=== PATIENT | female | born 1945 | race Caucasian/White ===

== ENCOUNTER → 2018-08-23 13:52 | Outpatient (BNVA) | payer MEDICARE, OTHER, SELFPAY | PROVIDERS: Referring Provider Internal Medicine; Visit Provider Nurse Practitioner Gerontology | DX: N39.0 Urinary tract infection, site not specified (principal); R82.71 Bacteriuria; E11.9 Type 2 diabetes mellitus without complications; I10 Essential (primary) hypertension; Z79.4 Long term (current) use of insulin | CPT/HCPCS: 99204 ==

== ENCOUNTER 2018-08-28 00:20 | Outpatient (CLI) | payer MEDICARE, OTHER, SELFPAY ==
[2018-08-28 10:29] LABS: CREATININE 1.22 mg/dL (0.55-1.02); Estimated GFR 43.45 (mL/min/1.73m2)
[2018-08-28] MEDS: Omnipaque 350 MG/ML 100 ML BTL IJ (11:15)
--- NOTE | 2018-08-28 11:20 | DI.CT_ITS ---
SYMPTOMS/DIAGNOSIS: RECURRENT URINARY TRACT INFECTIONS, CTU, R31.9 CT EXAMINATION OF THE ABDOMEN AND PELVIS: The patient has decreased renal function and the study was carried out with an intravenous injection of 70 cc of Omnipaque 350. There are regions of atelectasis involving the lung bases. The liver is unremarkable. The gallbladder is intact. There are no stones or ductal dilatation. The pancreas and spleen are intact. There are left renal cysts and vascular calcification is noted in the left kidney. There is no definite evidence of right or left nephrolithiasis or hydronephrosis. The ureters are not opacified; however, there is no evidence of right or left nephrolithiasis and the proximal mid portions of the ureters are of normal caliber. The bladder is nondistended. There is no evidence of bowel obstruction. The patient is apparently status post appendectomy. The reproductive organs as visualized appear intact with calcifications noted in the uterus consistent with degenerated fibroids. There is no evidence of a mass or adenopathy in the abdomen or pelvis. SUMMARY: The abdominal and pelvic CT reveals left renal cysts. There is no evidence of a right or left renal mass, nephrolithiasis or hydronephrosis. Please see the above discussion.
== END 2018-08-28 00:40 ==
PROVIDERS: PCP Internal Medicine; Visit Provider Nurse Practitioner Gerontology
DX: N39.0 Urinary tract infection, site not specified (principal); R31.9 Hematuria, unspecified; N28.1 Cyst of kidney, acquired; D25.9 Leiomyoma of uterus, unspecified
CPT/HCPCS: 36415; 74178; 82565; J3490

== ENCOUNTER 2019-12-27 06:33 | Day surgery (SDC) | payer MEDICARE, OTHER, SELFPAY ==
[2019-12-27 06:30] VITALS: BP 169/75; PULSE 64; RESP 16; TEMP 36.4; O2SAT 100
[2019-12-27] MEDS: Tropicam./Phenyleph. (1/2.5%) 5 ML BTL OD ×3 (06:51→07:00)
[2019-12-27] MEDS: Trypan Blue 0.06% 0.5 ML SYR (07:47)
[2019-12-27] MEDS: Tetracaine 0.5% 4 ML BTL OD (07:49)
[2019-12-27] MEDS: Lidocaine 1% Pres-Free 5 ML VIAL (07:50)
[2019-12-27] MEDS: Moxifloxacin-PF 1 MG/ML VIAL (07:51)
[2019-12-27] MEDS: Balanced Salt Soln.-PLUS 500 ML BAG ×2 (07:53→08:00)
[2019-12-27] MEDS: Lidocaine 2% Jelly 6 ML SYR (07:55)
[2019-12-27] MEDS: Povidone-Iodine Ophth 30 ML BTL (07:56)
--- NOTE | 2019-12-27 08:30 | W.PM.DSUDISC ---
Discharge Plan Disposition Patient Disposition: HOME Condition: Good Discharge Details Attending Provider: Rex Wallace Primary Care Provider: Rasheed Johnson Home Meds and New Rx's Prescriptions: No Action acetaminophen 500 mg tablet 500 mg PO BID PRNRF: 0 amlodipine 5 mg tablet 5 mg PO DAILY RF: 0 atorvastatin 10 mg tablet 10 mg PO DAILY RF: 0 chlorthalidone 25 mg tablet 25 mg PO DAILY RF: 0 Levemir U-100 Insulin 100 unit/mL solution 40 unit SC QHS RF: 0 losartan 100 mg tablet 100 mg PO DAILY RF: 0 metoprolol tartrate 50 mg tablet 50 mg PO BID RF: 0 Novolog Flexpen U-100 Insulin 100 unit/mL insulin pen 6 unit SC TID RF: 0 Discharge Instructions Stand Alone Forms: Post-op Topical Cataract, June Diaz (DSU) Discharge Orders Discharge Orders: Discharge Order (Routine); Ordered 12/27/19 Ordered By: Rex Wallace DS: Diagnosis Discharge Diagnosis (1) Posterior subcapsular age-related cataract, right eye: Status: Resolved (2) Nuclear sclerotic cataract of right eye: Status: Resolved (3) Cortical cataract of right eye: Status: Resolved
--- NOTE | 2019-12-27 08:31 | ROE_ITS ---
Date of service: 12/27/19 Time of Service: 08:32 Operative Note Operative Note DATE OF PROCEDURE: 12/27/19 PRE-OP DIAGNOSIS: Nuclear/cortical/subcapsular cataract, right eye, dense; poor red reflex, right eye secondary to dense cataract POST-OP DIAGNOSIS: same PROCEDURE: Cataract extraction using phacoemulsification with intraocular lens implantation, right eye, using capsular staining with Vision Blue SURGEON: Rex Wallace ANESTHESIA: MAC (with local sub-tenon's anesthetic injection) PATHOLOGY: none sent COMPLICATIONS: None Patient was transported to: same day Patient's condition: stable Implants: [employer] / [employer] Tecnis [id number] Indications: Progressive visual loss due to cataract, right eye Procedure Description: CATARACT SURGERY OPERATIVE REPORT PREOPERATIVE DIAGNOSIS: 1. Dense nuclear/cortical/posteriorsubcapsular cataract, right eye 2. Poor red reflex secondary to #1 POSTOPERATIVE DIAGNOSIS: Same OPERATION: 1. Cataract extraction using phacoemulsification with posterior chamber intraocular lens implant, right eye. 2. Capsular staining with Vision Blue IOL: IOL [employer] Coach/Model: [employer] / [place] Tecnis [id number] IOL Power: + 19.50 diopters IOL Serial Number: [id number] Optic Diameter: 6.0mm Haptic/Overall Diameter: 13.0mm PHACO INFO: Saul Fastac[employer]urion Vision System with OZil and [employer] Cumulative Dispersed Energy (CDE): 26.5 seconds SURGEON: Rex Wallace MD, KATALINA ANESTHESIA: Monitored Anesthesia Care (MAC), with local sub-tenon's anesthetic infiltration COMPLICATIONS: None SPECIMENS: None INDICATIONS FOR PROCEDURE: The patient is a 74-year-old lady with history of having undergone cataract surgery in her left eye many years ago. She has now developed a dense nuclear/cortical/posterior subcapsular cataract in the right eye with distance visual acuity of less than 20/400. The option of cataract surgery was offered to the patient and she wished to proceed. PROCEDURE: The correct surgical eye was identified and marked as the right eye and the pupil was dilated in the preoperative area using mydriatics and cycloplegics. The dilated pupil size was 5.5 mm. Oral sedation was administered in the form of an Imprimis MKO Melt (midazolam 3mg/ketamine 25mg/ondansetron 2mg). The patient was brought to the operating room where cardiopulmonary monitoring was instituted and surgical time-out was performed, confirming the correct operative eye and IOL power. Topical anesthesia was administered and ophthalmic povidone-iodine 5% was instilled into the conjunctival fornices. Lidocaine gel was applied to the cornea and the helena-ocular area was prepped with Betadine 10% solution and d raped in the usual sterile fashion for intraocular surgery, including an aperture drape. A Tegaderm transparent film dressing was cut in half and used to cover the lashes and lid margins. Care was taken to sequester the lashes and lid margins under the Tegaderm dressing. A lid speculum was placed between the lids of the operative eye and the Ita-Moy operating microscope was maneuvered into position. Charles scissors were then used to make a conjunctival buttonhole approximately 6mm posterior to the limbus in the inferonasal quadrant. Blunt dissection was carried out to expose bare sclera, and a blunt-tipped sub-tenon?s anesthesia cannula was introduced and passed posteriorly along the globe where non- preserved plain lidocaine was injected into posterior sub-Tenon?s space. A sidep ort knife was used to make a paracentesis port inferotemporally. Intraocular phenylephrine/lidocaine was injected into the anterior chamber. Air was injected into the anterior chamber, followed by Vision Blue, which was painted over the anterior capsule and then irrigated out with BSS. The anterior chamber was filled with Healon Pro. A 2.4mm keratome knife was used to create a half- thickness groove at the limbus and then to construct a three-plane near-clear corneal tunnel extending 2.0mm into clear cornea superiortemporally. A flap was raised on the anterior capsule using a cystotome. Zonular support was noted to be moderately lax. Capsulorrhexis forceps were then used to continue the continuous curvilinear capsulorrhexis in a clockwise fashion from the 7 o'clock position. At approximately the 12 o'clock position the patient moved suddenly, causing the capsulorrhexis to extend peripherally. It was able to be brought centrally but the flap completely tore away. A cystotome was then used to make an additional cut in the anterior capsule and capsulorhexis was then continued to create a continuous curvilinear capsulorrhexis, with an irregular discontinuity at the 1 o'clock position. Balanced salt solution was then used to perform cortical cleaving hydrodissection and nuclear hydrodelineation until the lens could be freely rotated within the capsular bag. The lens nucleus was then disassembled and removed within the capsular bag and iris plane using phacoemulsification. The cataract was noted to be quite dense with a leathery/rubbery posterior plate. Extensive manipulation was required to correct the cataract into smaller pieces. Residual cortical material was removed using the I/A handpiece. The posterior capsule was carefully polished to remove as much residual lens epithelial cells as safely possible. The capsular bag was then inflated and the anterior chamber deepened with viscoelastic. The lens implant described above was inserted into the capsular bag using the [place] Injector. A Kuglen hook was used to dial the IOL into position. The haptics were placed such that the superior haptic was at the area of irregular capsulorhexis superiorly. Residual viscoelastic was then removed first from posterior to the IOL, then from the anterior chamber using the I/A handpiece. The lens implant was noted to center nicely within the capsular bag. The incisions were stromally hydrated, and the anterior chamber was reformed using BSS. Then 0.5cc of moxifloxacin 1.0mg/ml were injected into the capsular bag and anterior chamber. The incisions were checked with a Weck spear and found to be secure. Several drops of ophthalmic povidone-iodine 5% were then applied to the eye followed by two drops of Imprimis combination prednisolone/moxifloxacin/nepafenac solution. The drapes were removed and a clear plastic protective eye shield was placed over the eye. The patient was then returned to [facility] in stable condition.
== END 2019-12-27 09:05 | disposition home or self-care (01) ==
PROVIDERS: PCP Internal Medicine; Visit Provider Ophthalmology
PROC: (CPT 66984; principal; 2019-12-27 07:30)
DX: H25.11 Age-related nuclear cataract, right eye; H25.031 Anterior subcapsular polar age-related cataract, right eye
CPT/HCPCS: 66984; V2632

== ENCOUNTER 2024-08-05 00:13 | Outpatient (CLI) | payer MEDICARE, SELFPAY ==
--- NOTE | 2024-08-05 12:35 | DI.RAD_ITS ---
Exam(s) XR FOOT RT COMPLETE EXAM: XR FOOT RT COMPLETE CLINICAL HISTORY: Right foot pain,m79.671. TECHNIQUE: 2D digital imaging was performed. Three views. COMPARISON: No exams were available for comparison FINDINGS: BONES: No acute fracture is present. No bony destructive lesion is seen. Plantar calcaneal spur. JOINTS: No dislocation present. Flattening of the plantar arch. Mild degenerative changes of the 1s t MTP joint. Bomz-yz-uheiaoeo hallux valgus. Severe degenerative changes at the 2nd tarsal metatars al joint. Hammertoe deformities. SOFT TISSUE: Aida vascular calcifications. Thin linear metallic density noted in the soft tissues p rojecting between the proximal phalanges of the 4th and 5th toes. IMPRESSION: Pes planus. Severe degenerative changes at the 2nd TMT joint. Mild degenerative changes 1st MTP aldo nt. Metallic density may represent a foreign body between the 4th and 5th toes. DATA REPOSITORY: RADIATION DOSE DELIVERED:
--- NOTE | 2024-08-05 12:42 | DI.RAD_ITS ---
Exam(s) XR FOOT LT COMPLETE EXAM: XR FOOT LT COMPLETE CLINICAL HISTORY: Left foot pain,m79.672. TECHNIQUE: 2D digital imaging was performed. Three views. COMPARISON: CR XR FOOT RT COMPLETE from 08/05/2024 FINDINGS: BONES: No acute fracture is present. No bony destructive lesion is seen. Plantar calcaneal spur. JOINTS: No dislocation present. Prominent hallux valgus. Mild degenerative changes are present at the 1st MTP joint. There is severe degenerative degenerative changes of the 2nd and 3rd tarsal metat arsal joints. Hammertoe deformities. Mild flattening of the plantar arch. SOFT TISSUE: Normal vascular calcifications. IMPRESSION: Severe degenerative changes at the 2nd and 3rd tarsal metatarsal joints. Hallux valgus. DATA REPOSITORY: RADIATION DOSE DELIVERED:
== END 2024-08-05 00:33 ==
LOC: DI 00:14
PROVIDERS: PCP Family Medicine; Visit Provider Podiatrist
DX: M79.671 Pain in right foot (principal); M79.672 Pain in left foot; M72.2 Plantar fascial fibromatosis; L60.3 Nail dystrophy; B35.1 Tinea unguium; E11.42 Type 2 diabetes mellitus with diabetic polyneuropathy; I73.89 Other specified peripheral vascular diseases; R09.89 Other specified symptoms and signs involving the circulatory and respiratory systems; R60.0 Localized edema; L65.9 Nonscarring hair loss, unspecified; L60.2 Onychogryphosis; L60.8 Other nail disorders
CPT/HCPCS: 11719; 11720; 73630